=== PATIENT | female | born 1970 | race Caucasian/White ===

== ENCOUNTER → 2021-12-08 | Outpatient (CLI) | payer MEDICAID, SELFPAY ==
--- NOTE | 2021-12-08 15:42 | NEURO_ITS ---
NCS and/or EMG Patient Report Ordering Doctor: Marko Her DATE OF SERVICE: 12/08/21 Indication: Acute left foot drop upon awakening from sleep in August 2021. Associated numbness in the left lateral leg and dorsum of the left foot. Findings: Nerve conduction studies were performed in the left lower extremity. Some comparisons were made to the asymptomatic right side. The left peroneal motor study recording the extensor digitorum brevis showed a reduced amplitude, normal distal latency and normal conduction velocity. No conduction block or focal slowing was present across the fibular neck. The left peroneal motor study recording the tibialis anterior showed a reduced amplitude, normal distal latency and normal conduction velocity. No conduction block or focal slowing was present across the fibular neck. The left tibial motor study recording the abductor hallucis brevis showed a normal amplitude, normal distal latency and normal conduction velocity. The left sural sensory response showed a normal amplitude and conduction velocity. The left superficial peroneal sensory response was absent. The left medial plantar response was absent. The left lateral plantar response was absent. The right peroneal motor study recording the extensor digitorum brevis showed a slightly reduced amplitude, normal distal latency and normal conduction velocity. Slight conduction block and focal slowing was present across the fibular neck. The right peroneal motor study recording the tibialis anterior showed a slightly reduced amplitude and normal distal latency. The right sural sensory response showed a normal amplitude and conduction velocity. The right superficial peroneal sensory response was absent. Needle EMG of the left lower extremity and lumbosacral paraspinal muscles was performed. Active denervation was present in the tibialis anterior, extensor hallucis longus and medial gastrocnemius muscles. Motor units in the tibialis anterior is slightly low amplitude, markedly polyphasic and with reduced recruitment. No volitional motor units were seen in the extensor hallucis longus. Motor unit morphology, activation, and recruitment patterns were normal in the vastus medialis, biceps femoris, and tensor fascia latae. Impression: This is a markedly abnormal study. 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 However, a more proximal lesion, preferentially affecting the axons destined for the peroneal distribution cannot be excluded. Lastly, the reduced amplitudes in the asymptomatic, right, lower extremity are of unclear significance. These findings may represent an underlying peripheral polyneuropathy. This was not fully evaluated as it was not the indication for the current study. Jose Armando Bailey D.O. [employer] Codes Neurology Neurology Interp Codes: 51978-44 [facility] test done w/n test comp (interp) and 86273-46 [facility])
== END | disposition home or self-care (01) ==
LOC: PSN 13:15
PROVIDERS: PCP Physician Assistant; Visit Provider Orthopaedic Surgery
DX: G57.32 Lesion of lateral popliteal nerve, left lower limb (principal); R20.8 Other disturbances of skin sensation
CPT/HCPCS: 95912